=== PATIENT | male | born 1975 | race Caucasian/White ===

== ENCOUNTER 2018-02-17 08:34 | Emergency (ER) | payer OTHER ==
[~2018-02-17] VITALS: Ht 167.6 cm; Wt 102.3 kg
[2018-02-17 08:41] VITALS: TEMP 36.7; Ht 167.6 cm; Wt 102.3 kg
[2018-02-17] MEDS ORDERED: FAMOTIDINE 20 MG TAB PO STA (08:54)
[2018-02-17] MEDS ORDERED: GI COCKTAIL PO STA (08:54)
[2018-02-17] MEDS ORDERED: SUCRALFATE 1 GM TAB PO ONE (09:00)
[2018-02-17] MEDS ORDERED: LIDOCAINE HCL 2% VISC SOLN 20 ML UDC ONE (09:04)
[2018-02-17] MEDS ORDERED: ALUMINUM/MAGNESIUM SUSP 30 ML UDC ONE (09:04)
[2018-02-17 09:12] VITALS: O2SAT 98
[2018-02-17 09:14] LABS: BASO % 0.9 %; BASO ABS # 0.05 K/uL (0-0.2); EOS % 4.2 %; EOS ABS # 0.23 K/uL (0-0.5); HEMATOCRIT 45.7 % (42-52); HEMOGLOBIN 15.8 g/dL (14.0-18.0); IG# 0.01 K/uL (0.00-0.02); LYMPH % 29.7 %; LYMPH ABS # 1.61 K/uL (1.2-3.4); MEAN CELL VOLUME 88.4 fL (80-100); MEAN CORPUSCULAR HEMOGLOBIN 30.6 pg (25-34); MEAN CORPUSCULAR HGB CONC 34.6 g/dl (32-36); MEAN PLATELET VOLUME 10.3 fL (7.4-10.4); MONO % 8.3 %; MONO ABS # 0.45 K/uL (0.11-0.59); NEUT % 56.7 %; NEUT ABS # 3.08 K/uL (1.4-6.5); PLATELET COUNT 225 K/uL (130-400); RED CELL DISTRIBUTION WIDTH CV 13.4 % (11.5-14.5); RED CELL DISTRIBUTION WIDTH SD 43.2 fL (36.4-46.3); WHITE BLOOD COUNT 5.43 K/uL (4.8-10.8)
--- NOTE | 2018-02-17 09:19 | DIAGNOSTIC IMAGING REPORT ---
SINGLE VIEW CHEST CLINICAL HISTORY: Atypical chest pain. FINDINGS: An AP, portable, upright chest radiograph is obtained. No prior studies are available for comparison at the time of dictation. The examination is degraded by portable technique and patient rotation. The cardiomediastinal silhouette is unremarkable. The lungs and pleural spaces are clear. No pneumothorax is seen. The bony thorax is grossly intact. IMPRESSION: No active disease in the chest. Electronically signed by: Gilbert Goncalves M.D. 02/17/2018 9:17 AM Dictated Date/Time: 02/17/2018 9:17 AM
[2018-02-17 09:37] LABS: ALBUMIN 4.5 gm/dl (3.4-5.0); ALKALINE PHOSPHATASE 54 U/L (45-117); ALT/SGPT 92 U/L (12-78); AST/SGOT 43 U/L (15-37); BLOOD UREA NITROGEN 19 mg/dl (7-18); CALCIUM 9.1 mg/dl (8.5-10.1); CARBON DIOXIDE 27 mmol/L (21-32); CKMB 3.5 ng/ml (0.5-3.6); CREATININE 1.01 mg/dl (0.60-1.40); GLUCOSE 108 mg/dl (70-99); LIPASE 117 U/L (73-393); POTASSIUM 4.1 mmol/L (3.5-5.1); SODIUM 139 mmol/L (136-145); TOTAL PROTEIN 8.8 gm/dl (6.4-8.2)
[2018-02-17] MEDS ORDERED: SERT50TA PO (09:37)
[2018-02-17] MEDS ORDERED: acid reflux med (09:37)
--- NOTE | 2018-02-17 09:54 | EMERGENCY ROOM VISIT NOTE ---
History Report prepared by Amari: Patsy Garza Under the Supervision of: Dr. Richard Campoverde M.D. First contact with patient: 08:43 Chief Complaint: CHEST PAIN Stated Complaint: CHEST PAIN,FULLNESS Nursing Triage Summary: pt reports chest pain started 1-2 weeks ago c/o tightness denies any sob . here to have sx checked denies any past cardiac hx History of Present Illness The patient is a 42 year old male who presents to the Emergency Room with complaints of intermittent left chest pain that is described as "fluttering, fullness, and pressure". He states that the pain has been present for the past week. The patient states that the pain worsens with rest, but denies that the pain worsens with exertion. He also denies worsening with deep inhalation or palpation. The patient has not gone on any long trips recently. The patient is a former smoker and smoked for about 10 years. He states that he takes Zoloft for anxiety and Protonix for GERD. Source of History: patient Onset: one week ago Position: chest (left) Quality: pressure, other (fullness and fluttering ) Timing: intermittent Modifying Factors (Worsening): rest Review of Systems See HPI for pertinent positives & negatives. A total of 10 systems reviewed and were otherwise negative. Social History Smoking Status: Former Smoker Current/Historical Medications Scheduled Sertraline (Zoloft), 75 MG PO DAILY Miscellaneous Medications [acid reflux med] Allergies Coded Allergies: NO KNOWN DRUG ALLERGIES (Unverified Allergy, Unknown, ., 02/17/18) Physical Exam Vital Signs Date Time Temp Pulse Resp B/P (MAP) Pulse Ox O2 Delivery O2 Flow Rate FiO2 02/17/18 11:41 71 18 119/84 96 Room Air 02/17/18 10:27 72 18 125/88 98 Room Air 02/17/18 09:32 64 18 123/84 97 Room Air 02/17/18 09:18 64 02/17/18 09:12 98 Room Air 02/17/18 09:12 98 Room Air 02/17/18 08:41 36.7 70 18 140/93 97 Physical Exam GENERAL: Awake, alert, well-appearing, in no acute distress HENT: Normocephalic, atraumatic. Oropharynx unremarkable. EYES: Normal conjunctiva. Sclera non-icteric. NECK: Supple. No nuchal rigidity. FROM. No JVD. RESPIRATORY: Clear to auscultation. CARDIAC: Regular rate, normal rhythm. Extremities warm and well perfused. Pulses equal. ABDOMEN: Soft, non-distended. No tenderness to palpation. No rebound or guarding. No masses. RECTAL: Deferred. MUSCULOSKELETAL: Chest examination reveals no tenderness. The back is symmetrical on inspection without obvious abnormality. There is no CVA tenderness to palpation. No joint edema. LOWER EXTREMITIES: Calves are equal size bilaterally and non-tender. No edema. No discoloration. NEURO: Normal sensorium. No sensory or motor deficits noted. SKIN: No rash or jaundice noted. Medical Decision & Procedures ER Provider Diagnostic Interpretation: Radiology results as stated below per my review and radiologist interpretation: SINGLE VIEW CHEST CLINICAL HISTORY: Atypical chest pain. FINDINGS: An AP, portable, upright chest radiograph is obtained. No prior studies are available for comparison at the time of dictation. The examination is degraded by portable technique and patient rotation. The cardiomediastinal silhouette is unremarkable. The lungs and pleural spaces are clear. No pneumothorax is seen. The bony thorax is grossly intact. IMPRESSION: No active disease in the chest. Electronically signed by: Gilbert Goncalves M.D. 02/17/2018 9:17 AM Dictated Date/Time: 02/17/2018 9:17 AM Laboratory Results 02/17/18 09:00 Red Blood Count 5.17, Mean Corpuscular Volume 88.4, Mean Corpuscular Hemoglobin 30.6, Mean Corpuscular Hemoglobin Concent 34.6, Mean Platelet Volume 10.3, Neutrophils (%) (Auto) 56.7, Lymphocytes (%) (Auto) 29.7, Monocytes (%) (Auto) 8.3, Eosinophils (%) (Auto) 4.2, Basophils (%) (Auto) 0.9, Neutrophils # (Auto) 3.08, Lymphocytes # (Auto) 1.61, Monocytes # (Auto) 0.45, Eosinophils # (Auto) 0.23, Basophils # (Auto) 0.05 02/17/18 09:00 Test 02/17/18 09:00 White Blood Count 5.43 K/uL (4.8-10.8) Red Blood Count 5.17 M/uL (4.7-6.1) Hemoglobin 15.8 g/dL (14.0-18.0) Hematocrit 45.7 % (42-52) Mean Corpuscular Volume 88.4 fL (80-100) Mean Corpuscular Hemoglobin 30.6 pg (25-34) Mean Corpuscular Hemoglobin Concent 34.6 g/dl (32-36) Platelet Count 225 K/uL (130-400) Mean Platelet Volume 10.3 fL (7.4-10.4) Neutrophils (%) (Auto) 56.7 % Lymphocytes (%) (Auto) 29.7 % Monocytes (%) (Auto) 8.3 % Eosinophils (%) (Auto) 4.2 % Basophils (%) (Auto) 0.9 % Neutrophils # (Auto) 3.08 K/uL (1.4-6.5) Lymphocytes # (Auto) 1.61 K/uL (1.2-3.4) Monocytes # (Auto) 0.45 K/uL (0.11-0.59) Eosinophils # (Auto) 0.23 K/uL (0-0.5) Basophils # (Auto) 0.05 K/uL (0-0.2) RDW Standard Deviation 43.2 fL (36.4-46.3) RDW Coefficient of Variation 13.4 % (11.5-14.5) Immature Granulocyte % (Auto) 0.2 % Immature Granulocyte # (Auto) 0.01 K/uL (0.00-0.02) Anion Gap 8.0 mmol/L (3-11) Est Creatinine Clear Calc Drug Dose 104.5 ml/min Estimated GFR () 104.4 Estimated GFR (Non- 90.0 BUN/Creatinine Ratio 18.3 (10-20) Calcium Level 9.1 mg/dl (8.5-10.1) Total Bilirubin 0.4 mg/dl (0.2-1) Direct Bilirubin 0.1 mg/dl (0-0.2) Aspartate Amino Transf (AST/SGOT) 43 U/L (15-37) Alanine Aminotransferase (ALT/SGPT) 92 U/L (12-78) Alkaline Phosphatase 54 U/L (45-117) Total Creatine Kinase 231 U/L (39-308) Creatine Kinase MB 3.5 ng/ml (0.5-3.6) Creatine Kinase MB Ratio 1.5 (0-3.0) Troponin I < 0.015 ng/ml (0-0.045) Total Protein 8.8 gm/dl (6.4-8.2) Albumin 4.5 gm/dl (3.4-5.0) Lipase 117 U/L (73-393) Labs reviewed by ED physician. Medications Administered Medications (Trade) Dose Ordered Sig/Darlene Route Start Time Stop Time Status Last Admin Dose Admin Miscellaneous Medication (Gi Cocktail) 24 ml NOW STAT PO 02/17/18 08:54 02/17/18 08:56 DC 02/17/18 08:54 24 ML Famotidine (Pepcid Tab) 20 mg NOW STAT PO 02/17/18 08:54 02/17/18 08:56 DC 02/17/18 09:06 20 MG Sucralfate (Carafate Tab) 1 gm NOW ONCE PO 02/17/18 09:00 02/17/18 09:01 DC 02/17/18 09:06 1 GM ECG Per My Interpretation Indication: chest pain Rate (beats per minute): 66 Rhythm: normal sinus Findings: other (no ST elevation or ST depression) ED Course 0845: Past medical records reviewed. The patient was evaluated in room C3. A complete history and physical examination was performed. 1030: I checked on the patient. He passed his Stress Test. 1100: I checked on the patient. He is doing well. 1205: Upon reexamination the patient is resting. I discussed results and treatment plan with the patient. He verbalizes agreement and understanding. The patient is ready for discharge. Medical Decision Prior records/ancillary studies reviewed. Triage Nursing notes reviewed. The patient's history was concerning for chest pain. Differential diagnosis: Etiologies such as cardiac ischemia, aortic dissection, pulmonary embolism, pneumonia, pneumothorax, musculoskeletal, infections, pericarditis, myocarditis , esophageal rupture, gastrointestinal, as well as others were entertained. This is a 42-year-old male who presents emergency department complaining of chest pain. The patient reports the pain is worse when he goes to sleep at night and has been present for approximately 1 week. The pain is not reproducible on examination he is pain-free currently at the moment. He has a normal EKG as well as CK-MB and troponin. I did discuss the case with cardiology in the hopes that we could get this patient in for a stress test. The patient was able to pass his stress test. I suspect based on the patient's story that he is actually suffering from reflux but is getting worse when he lays down at night. For this reason he was given a GI cocktail Pepcid and Carafate. Patient was in agreement with this treatment plan. Medication Reconcilliation Current Medication List: was personally reviewed by me Blood Pressure Screening Patient's blood pressure: Elevated blood pressure Blood pressure disposition: Referred to PCP Consults Time Called: 1015 Consulting Physician: Dr. Herrera[facility] Returned Call: 1030 I discussed the case with Dr. Bloom-[facility]. He gave the patient the Stress Test. Impression Primary Impression: Chest pain Scribe Attestation The scribe's documentation has been prepared under my direction and personally reviewed by me in its entirety. I confirm that the note above accurately reflects all work, treatment, procedures, and medical decision making performed by me. Departure Information Dispostion Home / Self-Care Referrals Ki Hancock D.O. (PCP) Lyndsay Pantoja, DO Forms Call Back Authorization, HOME CARE DOCUMENTATION FORM, IMPORTANT VISIT INFORMATION Patient Instructions My [facility] Additional Instructions Avoid Caffeine Alcohol Clear liquid diet next 48 hours Take 5 ml Maalox before every meal and at bedtime Follow up with DR Pantoja's office You have been examined and treated today on an emergency basis only. This is not a substitute for, or an effort to provide, complete comprehensive medical care. It is impossible to recognize and treat all injuries or illnesses in a single emergency department visit. It is therefore important that you follow up closely with Dr Pantoja. Call as soon as possible for an appointment. Thank you for your time and consideration. I look forward to speaking with you again soon. Please don't hesitate to call us if you have any questions. Problem Qualifiers Primary Impression: Chest pain Chest pain type: unspecified Qualified Codes: R07.9 - Chest pain, unspecified
[2018-02-17 11:41] VITALS: BP 119/84; PULSE 71; O2SAT 96
--- NOTE | 2018-02-17 11:47 | EXERCISE STRESS ECHO ---
*NOTICE TO RECEIVING DEMOCRAT AGENCY This information is strictly Confidential and protected under [place] law. [place] law prohibits you from making any further disclosure of this information unless further disclosure is expressly permitted by the written consent of the person to whom it pertains or is authorized by law. A general authorization for the release of medical or other information is not sufficient for this purpose. Hospital accepts no responsibility if the information is made available to any other person, INCLUDING THE PATIENT. Interpretation Summary * Name: JEREMY MANRIQUE Study Date: 02/17/2018 10:19 AM BP: 132/79 mmHg * Patient Location: [facility] HR: 63 * : 1975 (M/d/yyyy) Gender: Male Height: 66 in * Age: 42 yrs Ethnicity: [place] Weight: 225 lb * Ordering Physician: Richard Campoverde * Referring Physician: Self, Referred * Performed By: Jose Valencia RCS * * Reason For Study: Chest Pain * BSA: 2.1 m2 * -- Conclusions -- * Stress Echo: * 1. Negative stress echo for ischemia at 90 % MPHR. * 2. Negative exercise ECG for ischemia at 90 % MPHR. * 3. Appropriate blood pressure response to exercise. * 4. No arrhythmia. * 5. Study terminated due to fatigue. No chest pain reported. * 6. Good exercise tolerance. Procedure Details * ECHOEX, CPT #[id number] Left Ventricle * The left ventricle is normal in size. * There is mild concentric left ventricular hypertrophy. * Left ventricular systolic function is normal. * Resting wall motion: Normal. Stress wall motion: Appropriate increase in Left ventricular systolic function and decrease in cavity size. No stress induced segmental wall motion abnormalities. * The left ventricular ejection fraction increases normally with stress. The left ventricular end-systolic cavity size reduces post-stress (normal response). The left ventricular wall motion with stress is normal. Stress Parameters * NSR at 63 bpm. * Stress ECG: No ST changes. No arrhythmias. * No arrhythmia were noted with stress. * Rest heart rate was '63' BPM. * Rest blood pressure was '132/79' * Maximum heart rate achieved was 160 bpm. * Maximum heart rate was 90 % of maximum age-predicted heart rate. * Maximum blood pressure was '161/67' * Total exercise time was '9:39' * Maximum exercise MET level achieved was '11' METS * Maximum treadmill speed was '4.1' miles per hour. * Maximum treadmill elevation was '4.1'% grade. * Exercise was terminated due to 'fatigue' * Normal blood pressure response to exercise. MMode 2D Measurements and Calculations IVSd 1.3 cm LVIDd 5.2 cm LVIDs 3.5 cm LVPWd 1.2 cm IVS/LVPW 1.1 FS 32.6 % EDV(Teich) 128.2 ml ESV(Teich) 50.6 ml EF(Teich) 60.6 % EDV(cubed) 138.8 ml ESV(cubed) 42.6 ml EF(cubed) 69.3 % LV mass(C)d 252.4 grams LV mass(C)dI 120.0 grams/m\S\2 SV(Teich) 77.6 ml SI(Teich) 36.9 ml/m\S\2 SV(cubed) 96.2 ml SI(cubed) 45.8 ml/m\S\2 Ao root diam 3.5 cm Ao root area 9.5 cm\S\2
== END 2018-02-17 12:08 | disposition home or self-care (01) ==
LOC: C.EDB 08:35 → C.EDC 12:08
DX: R07.9 Chest pain, unspecified (principal); K21.9 Gastro-esophageal reflux disease without esophagitis; F41.9 Anxiety disorder, unspecified; Z79.899 Other long term (current) drug therapy; Z87.891 Personal history of nicotine dependence